=== PATIENT | female | born 1960 | race Two or more races ===

== ENCOUNTER 2021-03-09 06:59 | Inpatient (IN) | payer BC ==
[2021-03-09] MEDS ORDERED: HYDROmorphone 1 MG/ML 1 ML SYRINGE IVP STA (07:16)
[2021-03-09] MEDS ORDERED: SODIUM CHLORIDE 0.9% 1,000 ML IV STA (07:16)
--- NOTE | 2021-03-09 07:19 | ED ---
Abdominal Pain HPI - General Chief Complaint: Abdominal Pain Stated Complaint: Abdominal Pain Time Seen by Provider: 03/09/21 07:00 Source: patient, family Mode of arrival: ambulatory Limitations: no limitations - History of Present Illness Initial Comments: Patient is a 67-year-old female with past medical history of hypertension who presents to the emergency department with reported right lower quadrant abdominal pain. History is a little bit difficult to obtain as Bulgarian is a second language. The reports that they were in [facility] visiting a son when patient had sudden onset of right lower quadrant abdominal pain which started yesterday. They did go into [facility] last night. Laboratory studies were performed and a CAT scan was obtained. Laboratory studies were remarkable for a potassium of 3 and C-reactive protein of 15.7. CT of the abdomen and pelvis revealed a 1.8 cm appendix with periappendiceal soft tissue stranding and fluid. Diagnoses of evolving acute appendicitis. As the patient is normally a [place] citizen with [place] insurance they did leave [facility] AGAINST MEDICAL ADVICE and proceeded for facility as they do have insurance here. The patient was given 1 g of Rocephin and 500 mg of Flagyl prior to her discharge. She reports she also received pain medications. No vomiting. The patient has had a previous hysterectomy. The remainder of the HPI is limited due to the language barrier - Related Data Home Medications Medication Instructions Recorded Confirmed Losartan Potassium 100 mg PO DAILY 03/09/21 03/09/21 Metoprolol Tartrate [Lopressor] 50 mg PO BID 03/09/21 03/09/21 Potassium Chloride ER [K-Dur 10] 10 meq PO DAILY 03/09/21 03/09/21 hydroCHLOROthiazide [Hydrodiuril] 25 mg PO DAILY 03/09/21 03/09/21 Allergies Allergy/AdvReac Type Severity Reaction Status Date / Time No Known Allergies Allergy Verified 03/09/21 08:25 Review of Systems ROS Statement: Those systems with pertinent positive or pertinent negative responses have been documented in the HPI. ROS Other: All systems not noted in ROS Statement are negative. Past Medical History Additional Past Medical History / Comment(s): enlarged appendix History of Any Multi-Drug Resistant Organisms: None Reported Past Surgical History: Hysterectomy Past Psychological History: No Psychological Hx Reported Smoking Status: Never smoker Past Alcohol Use History: None Reported Past Drug Use History: None Reported General Exam Limitations: language barrier General appearance: alert, in no apparent distress Head exam: Present: atraumatic, normocephalic, normal inspection Eye exam: Present: normal appearance, PERRL, EOMI. Absent: scleral icterus, conjunctival injection, periorbital swelling ENT exam: Present: normal exam, mucous membranes moist Neck exam: Present: normal inspection. Absent: tenderness, meningismus, lymphadenopathy Respiratory exam: Present: normal lung sounds bilaterally. Absent: respiratory distress, wheezes, rales, rhonchi, stridor Cardiovascular Exam: Present: regular rate, normal rhythm, normal heart sounds. Absent: systolic murmur, diastolic murmur, rubs, gallop, clicks GI/Abdominal exam: Present: soft, tenderness (Right lower quadrant. Non- peritoneal abdomen), normal bowel sounds. Absent: distended, guarding, rebound, rigid Extremities exam: Present: normal inspection, full ROM, normal capillary refill. Absent: tenderness, pedal edema, joint swelling, calf tenderness Back exam: Present: normal inspection Neurological exam: Present: alert, oriented X3, CN II-XII intact Psychiatric exam: Present: normal affect, normal mood Skin exam: Present: warm, dry, intact, normal color. Absent: rash Course Vital Signs 03/09/21 03/09/21 07:01 07:40 Temperature 98.4 F 99.4 F Pulse Rate 66 77 Respiratory 22 18 Rate Blood Pressure 115/84 126/70 O2 Sat by Pulse 100 95 Oximetry Medical Decision Making - Medical Decision Making Upon arrival patient is placed into room 3. A thorough history and physical exam was performed. IV is established the patient is given a liter bolus of normal saline. She is also given 1 mg of Dilaudid for pain. Zosyn 3 mg is orde red as the patient has no ALLERGIES. I did repeat laboratory studies. They reveal a white count of 15.6. Reviewing the patient's CT I did speak with Dr. Cohen at 7:35 am. He does agree to admission. Patient will be made nothing by mouth with surgery anticipated. EKG obtained for surgery - Lab Data Result diagrams: 03/09/21 07:30 03/09/21 07:30 Lab Results 03/09/21 03/09/21 03/09/21 Range/Units 07:30 07: 07:30 WBC 15.6 H (3.8-10.6) k/uL RBC 4.70 (3.80-5.40) m/uL Hgb 14.6 (11.4-16.0) gm/dL Hct 42.4 (34.0-46.0) % MCV 90.1 (80.0-100.0) fL MCH 31.1 (25.0-35.0) pg MCHC 34.5 (31.0-37.0) g/dL RDW 12.8 (11.5-15.5) % Plt Count 182 (150-450) k/uL MPV 8.1 Neutrophils % 91 % Lymphocytes % 5 % Monocytes % 3 % Eosinophils % 1 % Basophils % 0 % Neutrophils # 14.1 H (1.3-7.7) k/uL Lymphocytes # 0.9 L (1.0-4.8) k/uL Monocytes # 0.5 (0-1.0) k/uL Eosinophils # 0.1 (0-0.7) k/uL Basophils # 0.0 (0-0.2) k/uL PT 10.8 (9.0-12.0) sec INR 1.0 (<1.2) APTT 21.9 L (22.0-30.0) sec Sodium 137 (137-145) mmol/L Potassium 3.2 L (3.5-5.1) mmol/L Chloride 102 (98-107) mmol/L Carbon Dioxide 25 (22-30) mmol/L Anion Gap 10 mmol/L BUN 12 (7-17) mg/dL Creatinine 0.59 (0.52-1.04) mg/dL Est GFR (CKD-EPI)AfAm >90 (>60 ml/min/1.73 sqM) Est GFR (CKD-EPI)NonAf >90 (>60 ml/min/1.73 sqM) Glucose 194 H (74-99) mg/dL Plasma Lactic Acid Edward (0.7-2.0) mmol/L Calcium 9.2 (8.4-10.2) mg/dL Total Bilirubin 1.0 (0.2-1.3) mg/dL AST 23 (14-36) U/L ALT 25 (4-34) U/L Alkaline Phosphatase 74 (38-126) U/L Total Protein 6.9 (6.3-8.2) g/dL Albumin 4.2 (3.5-5.0) g/dL Lipase 159 (23-300) U/L 03/09/ Range/Units 07:30 WBC (3.8-10.6) k/uL RBC (3.80-5.40) m/uL Hgb (11.4-16.0) gm/dL Hct (34.0-46.0) % MCV (80.0-100.0) fL MCH (25.0-35.0) pg MCHC (31.0-37.0) g/dL RDW (11.5-15.5) % Plt Count (150-450) k/uL MPV Neutrophils % % Lymphocytes % % Monocytes % % Eosinophils % % Basophils % % Neutrophils # (1.3-7.7) k/uL Lymphocytes # (1.0-4.8) k/uL Monocytes # (0-1.0) k/uL Eosinophils # (0-0.7) k/uL Basophils # (0-0.2) k/uL PT (9.0-12.0) sec INR (<1.2) APTT (22.0-30.0) sec Sodium (137-145) mmol/L Potassium (3.5-5.1) mmol/L Chloride (98-107) mmol/L Carbon Dioxide (22-30) mmol/L Anion Gap mmol/L BUN (7-17) mg/dL Creatinine (0.52-1.04) mg/dL Est GFR (CKD-EPI)AfAm (>60 ml/min/1.73 sqM) Est GFR (CKD-EPI)NonAf (>60 ml/min/1.73 sqM) Glucose (74-99) mg/dL Plasma Lactic Acid Edward 2.0 (0.7-2.0) mmol/L Calcium (8.4-10.2) mg/dL Total Bilirubin (0.2-1.3) mg/dL AST (14-36) U/L ALT (4-34) U/L Alkaline Phosphatase (38-126) U/L Total Protein (6.3-8.2) g/dL Albumin (3.5-5.0) g/dL Lipase (23-300) U/L - EKG Data EKG Comments: EKG demonstrates normal sinus rhythm with a ventricular rate of 75. RI interval 138. QRS 98. QTC of 431. No acute ST segment elevations or depressions concerning for ischemic changes Disposition Clinical Impression: Acute appendicitis, Abdominal pain Disposition: ADMITTED IP TO THIS HOSP Condition: Serious Is patient prescribed a controlled substance at d/c from ED?: No Referrals: None,Stated [Primary Care Provider] - 1-2 days Decision to Admit Reason: Admit from EC Decision Date: 03/09/21 Decision Time: 08:01
[2021-03-09] MEDS: PIPERACILLIN-TAZOBACTAM 3.375 GM in SODIUM CHLORIDE 0.9% 100 ML IVPB SCH ×2 (07:31→16:00)
[2021-03-09 07:49] LABS: Basophils % (A) 0 %; Eosinophils # (A) 0.1 k/uL (0-0.7); Eosinophils % (A) 1 %; HCT 42.4 % (34.0-46.0); HGB 14.6 gm/dL (11.4-16.0); Lymphocytes # (A) 0.9 k/uL (1.0-4.8); Lymphocytes % (A) 5 %; MCH 31.1 pg (25.0-35.0); MCHC 34.5 g/dL (31.0-37.0); MCV 90.1 fL (80.0-100.0); Mean Platelet Volume 8.1; Monocytes # (A) 0.5 k/uL (0-1.0); Monocytes % (A) 3 %; Neutrophils # (A) 14.1 k/uL (1.3-7.7); Neutrophils % (A) 91 %; Platelet Count 182 k/uL (150-450); RDW 12.8 % (11.5-15.5); WBC 15.6 k/uL (3.8-10.6)
[2021-03-09 07:58] LABS: ALT 25 U/L (4-34); AST 23 U/L (14-36); African American GFR (CKD) >90 (>60 ml/min/1.73 sqM); Albumin 4.2 g/dL (3.5-5.0); Alkaline Phosphatase 74 U/L (38-126); Anion Gap 10 mmol/L; Blood Urea Nitrogen 12 mg/dL (7-17); Calcium 9.2 mg/dL (8.4-10.2); Carbon Dioxide 25 mmol/L (22-30); Chloride 102 mmol/L (98-107); Glucose 194 mg/dL (74-99); Lipase 159 U/L (23-300); Non-African American GFR(CKD) >90 (>60 ml/min/1.73 sqM); Potassium 3.2 mmol/L (3.5-5.1); Sodium 137 mmol/L (137-145); Total Protein 6.9 g/dL (6.3-8.2)
[2021-03-09] MEDS ORDERED: HYDROmorphone 1 MG/ML 1 ML SYRINGE IVP PRN (08:01)
[2021-03-09] MEDS ORDERED: NALOXONE 0.4 MG/ML 1 ML VIAL IV PRN (08:01)
[2021-03-09] MEDS ORDERED: HYDROmorphone 0.5 MG/0.5 ML SYRINGE IVP PRN (08:01)
[2021-03-09 08:04] LABS: Partial Thromboplastin Time 21.9 sec (22.0-30.0); Prothrombin Time 10.8 sec (9.0-12.0)
[2021-03-09 08:25] LABS: Appearance,Urine Clear (Clear); Bilirubin,Urine Negative (Negative); Blood,Urine Negative (Negative); Color,Urine Yellow; Glucose,Urine (UA) Negative (Negative); Ketones,Urine 2+ (Negative); Leukocyte Esterase,Urine Negative (Negative); Nitrite,Urine Negative (Negative); Protein,Urine Trace (Negative); Urobilinogen,Urine <2.0 mg/dL (<2.0)
[2021-03-09 08:27] LABS: Specific Gravity,Urine >1.050 (1.001-1.035)
[2021-03-09] MEDS: SODIUM CHLORIDE 0.9% 1,000 ML IV SCH ×2 (09:51→21:34)
[2021-03-09] MEDS ORDERED: POTASSIUM CHLORIDE ER 20 MEQ TAB.ER PO STA (11:09)
--- NOTE | 2021-03-09 11:32 | P.GSHP ---
<Nickie Sheikh - Last Filed: 03/09/21 11:25> History of Present Illness H&P Date: 03/09/21 CHIEF COMPLAINT: Abdominal pain HISTORY OF PRESENT ILLNESS: This is a 61-year-old female with a known history of hypertension, prior and hysterectomy. Patient presents to the emergency room with complaints of right lower quadrant abdominal pain. Her pain started yesterday. Occitan is patient's second language. Most of history was obtained from chart. Apparently patient was in [facility] visiting her son when she had sudden right lower quadrant abdominal pain and did proceed to go to [facility] in [place]. She had laboratory results that showed a C- reactive protein of 15.7 potassium of 3 CAT scan of abdomen and pelvis had shown a 1.8 cm appendix with periappendiceal soft tissue stranding an fluid. Diagnosis of evolving acute appendicitis. Since patient is a normally [place] citizen with [place] insurance she left the hospital in [place] AGAINST MEDICAL ADVICE and proceeded for a facility that does carry her insurance. Apparently she was given a dose of Rocephin and Flagyl prior to her discharge. Patient's white count is elevated.. Denies any nausea or vomiting. Denies any fevers. PAST MEDICAL HISTORY: See list. PAST SURGICAL HISTORY: See list. MEDICATIONS: See list. ALLERGIES: See list. SOCIAL HISTORY: No illicit drug use. REVIEW OF SYSTEMS: CONSTITUTIONAL: Denies fever or chills. HEENT: Denies blurred vision, vision changes, or eye pain. Denies hemoptysis CARDIOVASCULAR: Denies chest pain or pressure. RESPIRATORY: No shortness of breath. GASTROINTESTINAL: See HPI for pertinent findings HEMATOLOGIC: Denies bleeding disorders. GENITOURINARY: Denies any blood in urine or increased urinary frequency. SKIN: Denies pruitis. Denies rash. PHYSICAL EXAM: VITAL SIGNS: Reviewed GENERAL: Well-developed in no acute distress. HEENT: No sclera icterus. Extraocular movements grossly intact. Moist buccal mucosa. Head is atraumatic, normocephalic. No nasal drainage. ABDOMEN: Soft. Nondistended. Right lower quadrant tenderness NEUROLOGIC: Alert and oriented. Cranial nerves II through XII grossly intact. LABORATORY DATA: WBC 15.6 hemoglobin 14.6 platelets 182 sodium 137 potassium 3.2 creatinine 0.59 lactic acid 2.0 LFTs normal lipase normal UA negative for infection IMAGING: Computed tomography scan findings as stated above ASSESSMENT: 1. Acute appendicitis 2. Hypokalemia PLAN: -Patient scheduled for laparoscopic appendectomy today with Dr. Cohen -Keep patient nothing by mouth -Replace potassium -Continue IV fluids -Continue IV antibiotics -Continue pain medication as needed -Continue antiemetics as needed Physician Cement Crusher Operator note has been reviewed by physician. Signing provider agrees with the documented findings, assessment, and plan of care. Past Medical History Additional Past Medical History / Comment(s): pre diagnosed with diabetes no medications History of Any Multi-Drug Resistant Organisms: None Reported Past Surgical History: Section, Hysterectomy Past Anesthesia/Blood Transfusion Reactions: No Reported Reaction Past Psychological History: No Psychological Hx Reported Smoking Status: Never smoker Past Alcohol Use History: None Reported Past Drug Use History: None Reported - Past Family History Son(s) History Unknown: Yes Medications and Allergies Home Medications Medication Instructions Recorded Confirmed Type Losartan Potassium 100 mg PO DAILY 03/09/21 03/09/21 History Metoprolol Tartrate [Lopressor] 50 mg PO BID 03/09/21 03/09/21 History Potassium Chloride ER [K-Dur 10] 10 meq PO DAILY 03/09/21 03/09/21 History hydroCHLOROthiazide [Hydrodiuril] 25 mg PO DAILY 03/09/21 03/09/21 History Allergies Allergy/AdvReac Type Severity Reaction Status Date / Time No Known Allergies Allergy Verified 03/09/21 08:25 Surgical - Exam Vital Signs Temp Pulse Resp BP Pulse Ox 98.4 F 66 22 115/84 100 03/09/21 07:01 03/09/21 07:01 03/09/21 07:01 03/09/21 07:01 03/09/21 07:01 Results - Labs 03/09/21 07:30 03/09/21 07:30 Abnormal Lab Results - Last 24 Hours (Table) 03/09/21 03/09/21 03/09/21 Range/Units 07:30 07:30 07:30 WBC 15.6 H (3.8-10.6) k/uL Neutrophils # 14.1 H (1.3-7.7) k/uL Lymphocytes # 0.9 L (1.0-4.8) k/uL APTT 21.9 L (22.0-30.0) sec Potassium (3.5-5.1) mmol/L Glucose (74-99) mg/dL Ur Specific Eros >1.050 H (1.001-1.035) Urine Protein Trace H (Negative) Urine Ketones 2+ H (Negative) 03/09/21 Range/Units 07:30 WBC (3.8-10.6) k/uL Neutrophils # (1.3-7.7) k/uL Lymphocytes # (1.0-4.8) k/uL APTT (22.0-30.0) sec Potassium 3.2 L (3.5-5.1) mmol/L Glucose 194 H (74-99) mg/dL Ur Specific Eros (1.001-1.035) Urine Protein (Negative) Urine Ketones (Negative) Diabetes panel 03/09/21 Range/Units 07:30 Sodium 137 (137-145) mmol/L Potassium 3.2 L (3.5-5.1) mmol/L Chloride 102 (98-107) mmol/L Carbon Dioxide 25 (22-30) mmol/L BUN 12 (7-17) mg/dL Creatinine 0.59 (0.52-1.04) mg/dL Glucose 194 H (74-99) mg/dL Calcium 9.2 (8.4-10.2) mg/dL AST 23 (14-36) U/L ALT 25 (4-34) U/L Alkaline Phosphatase 74 (38-126) U/L Total Protein 6.9 (6.3-8.2) g/dL Albumin 4.2 (3.5-5.0) g/dL Calcium panel 03/09/21 Range/Units 07:30 Calcium 9.2 (8.4-10.2) mg/dL Albumin 4.2 (3.5-5.0) g/dL Pituitary panel 03/09/21 Range/Units 07:30 Sodium 137 (137-145) mmol/L Potassium 3.2 L (3.5-5.1) mmol/L Chloride 102 (98-107) mmol/L Carbon Dioxide 25 (22-30) mmol/L BUN 12 (7-17) mg/dL Creatinine 0.59 (0.52-1.04) mg/dL Glucose 194 H (74-99) mg/dL Calcium 9.2 (8.4-10.2) mg/dL Adrenal panel 03/09/21 Range/Units 07:30 Sodium 137 (137-145) mmol/L Potassium 3.2 L (3.5-5.1) mmol/L Chloride 102 (98-107) mmol/L Carbon Dioxide 25 (22-30) mmol/L BUN 12 (7-17) mg/dL Creatinine 0.59 (0.52-1.04) mg/dL Glucose 194 H (74-99) mg/dL Calcium 9.2 (8.4-10.2) mg/dL Total Bilirubin 1.0 (0.2-1.3) mg/dL AST 23 (14-36) U/L ALT 25 (4-34) U/L Alkaline Phosphatase 74 (38-126) U/L Total Protein 6.9 (6.3-8.2) g/dL Albumin 4.2 (3.5-5.0) g/dL <Baldomero Cohen - Last Filed: 03/09/21 12:53> History of Present Illness As above. Spoke with the patient and her with the hospital provided cat driver. Clinical scenario discussed in detail. We do not have the CAT scan films to evaluate however patient does have right lower quadrant tenderness and CAT scan report consistent with acute appendicitis. Will proceed with laparoscopic appendectomy, possible open appendectomy. Risks of bleeding, infection, abscess, leak, possible need for laparotomy or bowel resection, conversion to an open procedure, hernia, anesthesia complications reviewed. She understands and wishes to proceed. Surgical - Exam Vital Signs Temp Pulse Resp BP Pulse Ox 98.4 F 66 22 115/84 100 03/09/21 07:01 03/09/21 07:01 03/09/21 07:01 03/09/21 07:01 03/09/21 07:01 Results - Labs 03/09/21 07:30 03/09/21 07:30 Abnormal Lab Results - Last 24 Hours (Table) 03/09/21 03/09/21 03/09/21 Range/Units 07:30 07:30 07:30 WBC 15.6 H (3.8-10.6) k/uL Neutrophils # 14.1 H (1.3-7.7) k/uL Lymphocytes # 0.9 L (1.0-4.8) k/uL APTT 21.9 L (22.0-30.0) sec Potassium (3.5-5.1) mmol/L Glucose (74-99) mg/dL Ur Specific Eros >1.050 H (1.001-1.035) Urine Protein Trace H (Negative) Urine Ketones 2+ H (Negative) 03/09/21 Range/Units 07:30 WBC (3.8-10.6) k/uL Neutrophils # (1.3-7.7) k/uL Lymphocytes # (1.0-4.8) k/uL APTT (22.0-30.0) sec Potassium 3.2 L (3.5-5.1) mmol/L Glucose 194 H (74-99) mg/dL Ur Specific Eros (1.001-1.035) Urine Protein (Negative) Urine Ketones (Negative) Diabetes panel 03/09/21 Range/Units 07:30 Sodium 137 (137-145) mmol/L Potassium 3.2 L (3.5-5.1) mmol/L Chloride 102 (98-107) mmol/L Carbon Dioxide 25 (22-30) mmol/L BUN 12 (7-17) mg/dL Creatinine 0.59 (0.52-1.04) mg/dL Glucose 194 H (74-99) mg/dL Calcium 9.2 (8.4-10.2) mg/dL AST 23 (14-36) U/L ALT 25 (4-34) U/L Alkaline Phosphatase 74 (38-126) U/L Total Protein 6.9 (6.3-8.2) g/dL Albumin 4.2 (3.5-5.0) g/dL Calcium panel 03/09/21 Range/Units 07:30 Calcium 9.2 (8.4-10.2) mg/dL Albumin 4.2 (3.5-5.0) g/dL Pituitary panel 03/09/21 Range/Units 07:30 Sodium 137 (137-145) mmol/L Potassium 3.2 L (3.5-5.1) mmol/L Chloride 102 (98-107) mmol/L Carbon Dioxide 25 (22-30) mmol/L BUN 12 (7-17) mg/dL Creatinine 0.59 (0.52-1.04) mg/dL Glucose 194 H (74-99) mg/dL Calcium 9.2 (8.4-10.2) mg/dL Adrenal panel 03/09/21 Range/Units 07:30 Sodium 137 (137-145) mmol/L Potassium 3.2 L (3.5-5.1) mmol/L Chloride 102 (98-107) mmol/L Carbon Dioxide 25 (22-30) mmol/L BUN 12 (7-17) mg/dL Creatinine 0.59 (0.52-1.04) mg/dL Glucose 194 H (74-99) mg/dL Calcium 9.2 (8.4-10.2) mg/dL Total Bilirubin 1.0 (0.2-1.3) mg/dL AST 23 (14-36) U/L ALT 25 (4-34) U/L Alkaline Phosphatase 74 (38-126) U/L Total Protein 6.9 (6.3-8.2) g/dL Albumin 4.2 (3.5-5.0) g/dL
[2021-03-09] MEDS: METOPROLOL TARTRATE 50 MG TAB PO SCH ×2 (12:12→21:18)
[2021-03-09] MEDS: ONDANSETRON 4 MG/2 ML VIAL IVP PRN (12:18)
[2021-03-09] MEDS ORDERED: HEPARIN SODIUM,PORCINE/PF 5,000 UNIT/0.5 ML SYRINGE SQ ONE (13:41)
[2021-03-09] MEDS ORDERED: IV FLUID CONTINUATION 1,000 ML IV ONE (13:50)
[2021-03-09] MEDS ORDERED: SUCCINYLCHOLINE CHLORIDE 100 MG/5 ML SYR IV ONE (16:50)
[2021-03-09] MEDS ORDERED: NEOSTIGMINE 1 MG/ML 10 ML VIAL ONE (16:50)
[2021-03-09] MEDS ORDERED: MIDAZOLAM 2 MG/2 ML VIAL ONE (16:50)
[2021-03-09] MEDS ORDERED: fentaNYL (PF) 50 MCG/ML 2 ML AMP ONE (16:50)
[2021-03-09] MEDS ORDERED: PROPOFOL 10 MG/ML 20 ML VIAL IV ONE (16:50)
[2021-03-09] MEDS ORDERED: PHENYLEPHRINE-0.9% NACL SYG 1,000 MCG/10 ML SYRINGE ONE (16:50)
[2021-03-09] MEDS ORDERED: HYDROmorphone (PF) 1 MG/ML ONE (16:50)
[2021-03-09] MEDS ORDERED: ePHEDrine SULFATE/0.9% NACL/PF 50 MG/5 ML SYRINGE IV ONE (16:50)
[2021-03-09] MEDS ORDERED: GLYCOPYRROLATE 0.2 MG/ML 2 ML VIAL ONE (16:50)
[2021-03-09] MEDS ORDERED: ROCURONIUM 10 MG/ML (5 ML VIAL) IV ONE (16:50)
[2021-03-09] MEDS ORDERED: BUPIVACAINE (PF) 0.25% 30 ML VIAL SQ ONE ×2 (17:21)
[2021-03-09] MEDS ORDERED: LACTATED RINGERS 1,000 ML IV ONE (17:44)
[2021-03-09] MEDS ORDERED: traMADol 50 MG TAB PO PRN (17:46)
--- NOTE | 2021-03-09 17:49 | P.OP ---
Date of Procedure: 03/09/21 Procedure(s) Performed: PREOPERATIVE DIAGNOSIS: Acute appendicitis POSTOPERATIVE DIAGNOSIS: Same with abscess and localized peritonitis PROCEDURE: Laparoscopic appendectomy SURGEON: Vicki EBL: 5 mL ANESTHESIA: General COMPLICATIONS: None OPERATIVE PROCEDURE: The patient was brought and placed on the operating table in the supine position. The patient was placed under general anesthesia. The abdomen was prepped and draped in the usual sterile fashion. A small vertical infraumbilical incision was made. The fascia was retracted anteriorly with Melia forceps. The Veress needle was advanced into the peritoneal cavity. The saline drop test was normal. Insufflation took place to 15 mmHg. A 5 mm trocar was then placed. An additional 5 mm suprapubic trocar was placed under direct visualization as well as a 12 mm left lower quadrant trocar under direct visualization. The appendix was inspected. It was acutely inflamed. The patient had an abscess present in the right lower quadrant that was irrigated fully. There was no obvious perforation of the gallbladder seen. There were some gangrenous changes however noted. There was some peritonitis in that area identified. The mesoappendix was dissected. The base of the appendix was divided using a linear 45 mm intestinal stapler. The mesentery itself was divided using the LigaSure device and 12 mm clips. The area was then irrigated. No further purulence or bleeding was seen. The appendix was brought out of the peritoneal cavity through the left lower quadrant trocar site with an Endo Catch bag. The fascia at the 12 mm site was closed using a [id number] Tae- Eli 0 Vicryl stitch. The skin at all 3 sites was closed using 4-0 Monocryl sutures. Skin glue was then applied. DISPOSITION: Stable to recovery room
[2021-03-09] MEDS: KETOROLAC 15 MG/ML 1 ML VIAL IVP SCH (18:51)
[2021-03-09] MEDS ORDERED: METOPROLOL TARTRATE 25 MG TAB PO STA (21:15)
[2021-03-09] MEDS: DOCUSATE 100 MG CAP PO SCH (21:34)
[2021-03-10] MEDS: PIPERACILLIN-TAZOBACTAM 3.375 GM in SODIUM CHLORIDE 0.9% 100 ML IVPB SCH ×4 (00:20→23:58)
[2021-03-10] MEDS: HEPARIN SODIUM,PORCINE/PF 5,000 UNIT/0.5 ML SYRINGE SQ SCH ×4 (00:28→23:58)
[2021-03-10] MEDS: KETOROLAC 15 MG/ML 1 ML VIAL IVP SCH ×5 (00:28→23:57)
[2021-03-10] MEDS: DOCUSATE 100 MG CAP PO SCH ×2 (07:52→20:43)
[2021-03-10] MEDS: PANTOPRAZOLE 40 MG/10 ML VIAL IV SCH (07:54)
[2021-03-10] MEDS: METOPROLOL TARTRATE 50 MG TAB PO SCH ×2 (09:08→20:43)
--- NOTE | 2021-03-10 10:09 | P.PN ---
Subjective Progress Note Date: 03/10/21 Principal diagnosis: Acute appendicitis Patient feels better today. Her pain is improved. Mild nausea. No vomiting. No fevers. Objective - Vital Signs Vital signs: Vital Signs Temp 98.5 F 03/10/21 06:53 Pulse 74 03/10/21 06:53 Resp 16 03/10/21 06:53 BP 102/62 03/10/21 06:53 Pulse Ox 95 03/10/21 06:53 Intake & Output 03/09/21 03/10/21 03/10/21 18:59 06:59 18:59 Intake Total 1100 100 Output Total 210 625 200 Balance 890 -525 -200 Weight 84.2 kg Intake: IV 1100 Oral 100 Output: Urine 200 625 200 Estimated Blood Loss 10 Other: Voiding Method Toilet # Voids 1 1 - Exam Abdomen: Soft, nondistended, mild lower abdominal tenderness, incisions clean and dry - Labs CBC & Chem 7: 03/09/21 07:30 03/09/21 07:30 Assessment and Plan (1) Acute appendicitis Narrative/Plan: Patient doing fairly well postoperatively. Continue advancing diet as tolerated. Ambulate. Recheck labs tomorrow. Current Visit: Yes Status: Acute Code(s): K35.80 - UNSPECIFIED ACUTE APPENDICITIS SNOMED Code(s): 33505405
[2021-03-10] MEDS: SODIUM CHLORIDE 0.9% 1,000 ML IV SCH ×2 (11:57→23:58)
[2021-03-10] MEDS: HYDROcodone/APAP 5-325MG 1 EACH TAB PO PRN (12:49)
--- NOTE | 2021-03-10 22:56 | P.CONS ---
History of Present Illness - Reason for Consult Consult date: 03/10/21 Medical management - Chief Complaint Abdominal pain - History of Present Illness Patient is a 61-year-old female with a known history of hypertension, history of and hysterectomy presents to ER with complaints of right lower quadrant abdominal pain. Filipino is a second language for the patient and most of the history was obtained from her at bedside. According to him they were at [facility] visiting his son when she suddenly developed right lower quadrant abdominal pain started in the evening on 03/08/2021. They went to [facility] in [facility] where she had CT of the abdomen pelvis which showed 1.8 cm appendix with periappendiceal soft tissue stranding and fluid. Diagnosis of evolving acute appendicitis. Laboratory showed potassium level of 3.0 and CRP 15.7. Patient left AMA from the hospital as they do not have health insurance in [place]. Patient was given a dose of ceftriaxone and Flagyl prior to discharge. Otherwise patient denied any complaints of nausea or vomiting. No fever no chills. No headache or dizziness or lightheadedness. No diarrhea. No chest pain or shortness of breath. Laboratory showed WBC 15.6 hemoglobin 14.6 and platelets 182 Sodium 137 potassium 3.2 chloride 102 BUN 12 and creatinine 0.59 Liver enzymes are not elevated UA negative for infection Review of Systems Constitutional: Patient denies any fever or chills . No generalized weakness or weight loss. Abdomen: Right lower quadrant abdominal pain associate with nausea. No episodes of vomiting. No diarrhea.. Cardiovascular: Patient denies any chest pain or short of breath no palpitations. Respiratory: patient denied any cough or sputum production. No shortness of breath Neurologic: Patient denied any numbness or tingling headache. Musculoskeletal: Patient denies any complaints of joint swelling or deformity. Skin: Negative Psychiatric: Negative Endocrine: No heat or cold intolerance. No recent weight gain. Genitourinary: No dysuria or hematuria. All other 14 point ROS negative except the above Past Medical History Additional Past Medical History / Comment(s): pre diagnosed with diabetes no medications History of Any Multi-Drug Resistant Organisms: None Reported Past Surgical History: Section, Hysterectomy Past Anesthesia/Blood Transfusion Reactions: No Reported Reaction Past Psychological History: No Psychological Hx Reported Smoking Status: Never smoker Past Alcohol Use History: None Reported Past Drug Use History: None Reported - Past Family History Son(s) History Unknown: Yes Medications and Allergies Home Medications Medication Instructions Recorded Confirmed Type Losartan Potassium 100 mg PO DAILY 03/09/21 03/09/21 History Metoprolol Tartrate [Lopressor] 50 mg PO BID 03/09/21 03/09/21 History Potassium Chloride ER [K-Dur 10] 10 meq PO DAILY 03/09/21 03/09/21 History hydroCHLOROthiazide [Hydrodiuril] 25 mg PO DAILY 03/09/21 03/09/21 History Allergies Allergy/AdvReac Type Severity Reaction Status Date / Time No Known Allergies Allergy Verified 03/09/21 08:25 Physical Exam Vitals: Vital Signs Temp Pulse Resp BP BP Pulse Ox 03/10/21 06:53 98.5 F 74 16 102/62 95 03/10/21 02:00 98.4 F 75 16 100/62 95 03/10/21 01:18 67 96 03/10/21 00:59 64 96 03/10/21 00:46 75 16 96 03/09/21 22:20 73 16 104/66 98 03/09/21 21:30 75 16 116/73 99 03/09/21 21:20 94 L 03/09/21 21:09 70 16 117/76 03/09/21 21:07 97 03/09/21 20:34 98.0 F 71 16 124/77 99 03/09/21 20:20 74 16 113/71 94 L 03/09/21 20:06 73 16 102/67 95 03/09/21 19:50 74 16 106/68 96 03/09/21 19:44 16 03/09/21 19:35 63 16 112/71 98 03/09/21 19:20 75 16 114/74 97 03/09/21 19:05 73 16 98 03/09/21 18:50 61 16 109/70 98 03/09/21 18:35 99.3 F 64 16 112/69 96 03/09/21 18:16 82 16 119/61 98 03/09/21 18:01 76 16 119/62 100 03/09/21 17:46 99.5 F 87 16 120/64 100 03/09/21 13:37 96.6 F L 79 12 112/62 91 L Intake and Output 07/30/21 07/31/21 07/31/21 22:59 06:59 14:59 Intake Total 1100 Output Total 235 400 200 Balance 865 -400 -200 Intake: IV 1000 Oral 100 Output: Urine 225 400 200 Estimated Blood Loss 10 Other: Voiding Method Toilet # Voids 1 1 PHYSICAL EXAMINATION: Patient is lying in the bed comfortably, no acute distress, awake alert and oriented.. HEENT: Normocephalic. Neck is supple. Pupils reactive. Nostrils clear. Oral cavity is moist. Neck reveals no JVD, carotid bruits, or thyromegaly. CHEST EXAMINATION: Trachea is central. Symmetrical expansion. Lung ruby clear to auscultation and percussion. CARDIAC: Normal S1, S2 with no gallops. No murmurs ABDOMEN: Soft. mild tenderness. Bowel sounds normal. No organomegaly. No abdominal bruits. Extremities: reveal no edema. No clubbing or cyanosis Neurologically awake, alert, oriented x3 with well-coordinated movements. No focal deficits noted Skin: No rash or skin lesions. Psychiatric: Coperative. Nonsuicidal Musculoskeletal: No joint swelling or deformity. Normal range of motion. Results CBC & Chem 7: 03/09/21 07:30 03/09/21 07:30 Assessment and Plan Assessment: Acute appendicitis with abscess and localized peritonitis. Status post laparoscopic appendectomy postoperative day 1. Leukocytosis secondary to above. Hypertension Hypokalemia DVT prophylaxis with heparin subcu Plan: Patient will be continued on antibiotics in the form of Zosyn and IV hydration. Encourage ambulation and incentive spirometry. Patient is status post laparoscopic appendectomy. Was started on clear liquid diet. Replace electrolytes. Continue with GI and DVT prophylaxis. We will continue to follow closely and further recommendations based on clinical course. Discussed with the patient and her at bedside in detail. Time with Patient: Greater than 30
[2021-03-11] MEDS: KETOROLAC 15 MG/ML 1 ML VIAL IVP SCH ×2 (06:01→12:20)
[2021-03-11 06:14] LABS: Basophils % (A) 0 %; Eosinophils # (A) 0.1 k/uL (0-0.7); Eosinophils % (A) 2 %; HCT 38.3 % (34.0-46.0); HGB 12.8 gm/dL (11.4-16.0); Lymphocytes # (A) 1.7 k/uL (1.0-4.8); Lymphocytes % (A) 31 %; MCH 31.3 pg (25.0-35.0); MCHC 33.3 g/dL (31.0-37.0); MCV 94.1 fL (80.0-100.0); Mean Platelet Volume 7.9; Monocytes # (A) 0.3 k/uL (0-1.0); Monocytes % (A) 5 %; Neutrophils # (A) 3.4 k/uL (1.3-7.7); Neutrophils % (A) 61 %; Platelet Count 169 k/uL (150-450); RBC 4.07 m/uL (3.80-5.40); RDW 13.2 % (11.5-15.5); WBC 5.6 k/uL (3.8-10.6)
[2021-03-11 06:24] LABS: African American GFR (CKD) >90 (>60 ml/min/1.73 sqM); Anion Gap 4 mmol/L; Blood Urea Nitrogen 6 mg/dL (7-17); Calcium 8.1 mg/dL (8.4-10.2); Carbon Dioxide 23 mmol/L (22-30); Chloride 115 mmol/L (98-107); Glucose 105 mg/dL (74-99); Non-African American GFR(CKD) >90 (>60 ml/min/1.73 sqM); Potassium 3.4 mmol/L (3.5-5.1); Sodium 142 mmol/L (137-145)
[2021-03-11] MEDS: PIPERACILLIN-TAZOBACTAM 3.375 GM in SODIUM CHLORIDE 0.9% 100 ML IVPB SCH ×3 (07:50→23:26)
[2021-03-11] MEDS: HEPARIN SODIUM,PORCINE/PF 5,000 UNIT/0.5 ML SYRINGE SQ SCH ×3 (07:50→23:27)
[2021-03-11] MEDS: HYDROcodone/APAP 5-325MG 1 EACH TAB PO PRN (07:55)
[2021-03-11] MEDS: PANTOPRAZOLE 40 MG/10 ML VIAL IV SCH (08:01)
[2021-03-11] MEDS: DOCUSATE 100 MG CAP PO SCH ×2 (08:02→23:05)
[2021-03-11] MEDS: METOPROLOL TARTRATE 50 MG TAB PO SCH ×2 (08:03→20:23)
--- NOTE | 2021-03-11 11:06 | P.PN ---
Subjective Progress Note Date: 03/11/21 Principal diagnosis: Acute appendicitis Patient more nauseated today. She has not had a bowel movement yet. Tolerating liquid diet. Mild discomfort from the bloating. Objective - Vital Signs Vital signs: Vital Signs Temp 97.6 F 03/11/21 08:00 Pulse 80 03/11/21 08:00 Resp 18 03/11/21 08:00 BP 142/83 03/11/21 08:00 Pulse Ox 96 03/11/21 08:00 Intake & Output 03/10/21 03/11/21 03/11/21 18:59 06:59 18:59 Intake Total 240 Output Total 1300 Balance -1060 Intake: Oral 240 Output: Urine 1300 Other: # Voids 3 1 - Exam Abdomen: Soft, mild distention, mild incisional tenderness - Labs CBC & Chem 7: 03/11/21 06:00 03/11/21 06:00 Labs: Abnormal Lab Results - Last 24 Hours (Table) 03/11/21 Range/Units 06:00 Potassium 3.4 L (3.5-5.1) mmol/L Chloride 115 H (98-107) mmol/L BUN 6 L (7-17) mg/dL Glucose 105 H (74-99) mg/dL Calcium 8.1 L (8.4-10.2) mg/dL Assessment and Plan (1) Acute appendicitis Narrative/Plan: Patient overall doing fairly well. Continue full liquids. Ambulate. Hopefully discharge tomorrow. Continue antibiotics. Current Visit: Yes Status: Acute Code(s): K35.80 - UNSPECIFIED ACUTE APPENDICITIS SNOMED Code(s): 91321106
[2021-03-11] MEDS: ONDANSETRON 4 MG/2 ML VIAL IVP PRN (12:18)
[2021-03-11] MEDS: SODIUM CHLORIDE 0.9% 1,000 ML IV SCH (12:29)
--- NOTE | 2021-03-11 22:11 | P.PN ---
Subjective Progress Note Date: 03/11/21 Principal diagnosis: Acute appendicitis with abscess and localized peritonitis. Status post laparoscopic appendectomy Patient is a 61-year-old female with a known history of hypertension, history of and hysterectomy presents to ER with complaints of right lower quadra nt abdominal pain. Urdu is a second language for the patient and most of the history was obtained from her at bedside. According to him they were at [facility] visiting his son when she suddenly developed right lower quadrant abdominal pain started in the evening on 03/08/2021. They went to [facility] in [facility] where she had CT of the abdomen pelvis which showed 1 .8 cm appendix with periappendiceal soft tissue stranding and fluid. Diagnosis of evolving acute appendicitis. Laboratory showed potassium level of 3.0 and CRP 15.7. Patient left AMA from the hospital as they do not have health insurance in [place]. Patient was given a dose of ceftriaxone and Flagyl prior to discharge. Otherwise patient denied any complaints of nausea or vomiting. No fever no chills. No headache or dizziness or lightheadedness. No diarrhea. No chest pain or shortness of breath. Laboratory showed WBC 15.6 hemoglobin 14.6 and platelets 182 Sodium 137 potassium 3.2 chloride 102 BUN 12 and creatinine 0.59 Liver enzymes are not elevated UA negative for infection. 03/11/2021 Patient is currently resting in the bed. Awake alert and oriented. Complains of abdominal bloating and nausea. No episodes of vomiting. Tolerating clear liquids. Advance to full liquid diet. Patient is able to ambulate. No complaints of chest pain or shortness of breath. No headache or dizziness or lightheadedness. Laboratory showed leukocytosis improved. Potassium level is 3.4 which is being replaced. Current medications reviewed. Objective - Vital Signs Vital signs: Vital Signs Temp 98.5 F 03/11/21 20:00 Pulse 63 03/11/21 20:00 Resp 16 03/11/21 20:00 BP 142/79 03/11/21 20:00 Pulse Ox 98 03/11/21 20:00 Intake & Output 03/11/21 03/11/21 03/12/21 06:59 18:59 06:59 Intake Total 100 Balance 100 Intake: Oral 100 Other: # Voids 3 1 # Bowel Movements 1 - Exam PHYSICAL EXAMINATION: Patient is lying in the bed comfortably, no acute distress, awake alert and oriented.. HEENT: Normocephalic. Neck is supple. Pupils reactive. Nostrils clear. Oral cavity is moist. Neck reveals no JVD, carotid bruits, or thyromegaly. CHEST EXAMINATION: Trachea is central. Symmetrical expansion. Lung ruby clear to auscultation and percussion. CARDIAC: Normal S1, S2 with no gallops. No murmurs ABDOMEN: Soft. mild RLQ tenderness. Bowel sounds sluggish. No organomegaly. No abdominal bruits. Extremities: reveal no edema. No clubbing or cyanosis Neurologically awake, alert, oriented x3 with well-coordinated movements. No focal deficits noted Skin: No rash or skin lesions. Psychiatric: Coperative. Nonsuicidal Musculoskeletal: No joint swelling or deformity. Normal range of motion. - Labs CBC & Chem 7: 03/11/21 06:00 03/11/21 06:00 Labs: Abnormal Lab Results - Last 24 Hours (Table) 03/11/21 Range/Units 06:00 Potassium 3.4 L (3.5-5.1) mmol/L Chloride 115 H (98-107) mmol/L BUN 6 L (7-17) mg/dL Glucose 105 H (74-99) mg/dL Calcium 8.1 L (8.4-10.2) mg/dL Assessment and Plan Assessment: Acute appendicitis with abscess and localized peritonitis. Status post laparos copic appendectomy postoperative day 2. Leukocytosis secondary to above. Hypertension Hypokalemia DVT prophylaxis with heparin subcu Plan: Patient will be continued on antibiotics in the form of Zosyn and IV hydration. Encourage ambulation and incentive spirometry. Patient is status post laparosc opic appendectomy. Was started on clear liquid diet. advanced to full liquids. Replace electrolytes. Continue with GI and DVT prophylaxis. We will continue to follow closely and further recommendations based on clinical course. Discussed with the patient at bedside in detail.
[2021-03-12] MEDS: SODIUM CHLORIDE 0.9% 1,000 ML IV SCH ×2 (06:10→16:00)
[2021-03-12 07:04] LABS: African American GFR (CKD) >90 (>60 ml/min/1.73 sqM); Anion Gap 4 mmol/L; Blood Urea Nitrogen 3 mg/dL (7-17); Calcium 8.4 mg/dL (8.4-10.2); Carbon Dioxide 24 mmol/L (22-30); Chloride 112 mmol/L (98-107); Glucose 106 mg/dL (74-99); Non-African American GFR(CKD) >90 (>60 ml/min/1.73 sqM); Potassium 3.2 mmol/L (3.5-5.1); Sodium 140 mmol/L (137-145)
[2021-03-12] MEDS: HEPARIN SODIUM,PORCINE/PF 5,000 UNIT/0.5 ML SYRINGE SQ SCH ×3 (08:48→23:56)
[2021-03-12] MEDS: PIPERACILLIN-TAZOBACTAM 3.375 GM in SODIUM CHLORIDE 0.9% 100 ML IVPB SCH ×3 (08:48→23:56)
[2021-03-12] MEDS: METOPROLOL TARTRATE 50 MG TAB PO SCH ×2 (08:48→21:10)
[2021-03-12] MEDS: PANTOPRAZOLE 40 MG/10 ML VIAL IV SCH (08:48)
[2021-03-12] MEDS: DOCUSATE 100 MG CAP PO SCH ×2 (08:56→21:59)
[2021-03-12] MEDS: POTASSIUM CHLORIDE ER 20 MEQ TAB.ER PO SCH ×2 (10:42→11:06)
--- NOTE | 2021-03-12 14:17 | P.PN ---
Subjective Progress Note Date: 03/12/21 Acute appendicitis with abscess and localized peritonitis. Status post laparoscopic appendectomy Patient is a 61-year-old female with a known history of hypertension, history of and hysterectomy presents to ER with complaints of right lower quadrant abdominal pain. Lithuanian is a second language for the patient and most of the history was obtained from her at bedside. According to him they were at [facility] visiting his son when she suddenly developed right lower quadrant abdominal pain started in the evening on 03/08/2021. They went to [facility] in [facility] where she had CT of the abdomen pelvis which showed 1.8 cm appendix with periappendiceal soft tissue stranding and fluid. Diagnosis of evolving acute appendicitis. Laboratory showed potassium level of 3.0 and CRP 15.7. Patient left AMA from the hospital as they do not have health insurance in [place]. Patient was given a dose of ceftriaxone and Flagyl prior to discharge. Otherwise patient denied any complaints of nausea or vomiting. No fever no chills. No headache or dizziness or lightheadedness. No diarrhea. No chest pain or shortness of breath. Laboratory showed WBC 15.6 hemoglobin 14.6 and platelets 182 Sodium 137 potassium 3.2 chloride 102 BUN 12 and creatinine 0.59 Liver enzymes are not elevated UA negative for infection. 03/11/2021 Patient is currently resting in the bed. Awake alert and oriented. Complains of abdominal bloating and nausea. No episodes of vomiting. Tolerating clear liquids. Advance to full liquid diet. Patient is able to ambulate. No complaints of chest pain or shortness of breath. No headache or dizziness or lightheadedness. Laboratory showed leukocytosis improved. Potassium level is 3.4 which is being replaced. 03/12/2021 Patient is evaluated today resting with at bedside. Patient is awake alert and oriented. Patient is denying pain around incisional site. Patient has denied nausea vomiting. Patient is tolerating advanced diet full liquid. Patient has been up ambulating to the restroom. Patient denies shortness of breath. Patient does complain of a mild burning sensation underneath her left breast that is reproducible with movement. Patient states that this pain was improved with pain medication and a warm heat pack applied. Potassium today is 3.2 which was replaced per protocol, will repeat CBC in the morning. Patient's leukocytosis is improved today down to 5.6, most likely reactive in nature. Patient remains afebrile. Patient is being empirically treated with Zosyn in the form of IV antibiotics. Patient is receiving [place] and tramadol for pain management with Dilaudid IV for breakthrough pain. Patient denies bowel movement however states that she is passing gas. ROS: Constitutional: Denied any fatigue denied any fever. Cardio vascular: denied any chest pain, palpitations Gastrointestinal denied any nausea vomiting Pulmonary: Denied any shortness of breath cough Neurologic denied any new focal deficits Musculoskeletal: Reports burning under left breast All inpatient medications were reviewed and appropriate changes in these medications as dictated in the interval history and assessment and plan. PHYSICAL EXAMINATION: GENERAL: The patient is alert and oriented x3, not in any acute distress. Well developed, well nourished. HEENT: Pupils are round and equally reacting to light. EOMI. No scleral icterus. No conjunctival pallor. Normocephalic, atraumatic. No pharyngeal erythema. No thyromegaly. CARDIOVASCULAR: S1 and S2 present. No murmurs, rubs, or gallops. PULMONARY: Chest is clear to auscultation, no wheezing or crackles. ABDOMEN: Soft, mild RLQ tenderness, nondistended, hypoactive bowel sounds. No palpable organomegaly. MUSCULOSKELETAL: No joint swelling or deformity. EXTREMITIES: No cyanosis, clubbing, or pedal edema. NEUROLOGICAL: Gross neurological examination did not reveal any focal deficits. SKIN: No rashes. Asessment: Acute appendicitis with abscess and localized peritonitis. Status post laparoscopic appendectomy postoperative day 3. Leukocytosis secondary to above, improved WBC 5.6 today Hypertension, losartan and hydrodiuril on hold Hypokalemia - 3.2 today, repllaced via potassium replacement protocol, check electrolytes tomorrow. DVT prophylaxis with heparin subcu Plan: Patient will be continued on antibiotics in the form of Zosyn and IV hydration. Encourage ambulation and incentive spirometry. Patient is status post laparoscopic appendectomy. Was started on clear liquid diet and advanced to full liquid, tolerating diet well. Replace electrolytes. Continue with GI and DVT prophylaxis. We will continue to follow closely and further recommendations based on clinical course. Discussed with the patient at bedside in detail. Objective - Vital Signs Vital signs: Vital Signs Temp 97.8 F 03/12/21 08:56 Pulse 68 03/12/21 08:56 Resp 18 03/12/21 08:56 BP 151/85 03/12/21 08:56 Pulse Ox 95 03/12/21 08:56 Intake & Output 03/11/21 03/12/21 03/12/21 18:59 06:59 18:59 Intake Total 100 Balance 100 Intake: Oral 100 Other: # Voids 1 1 # Bowel Movements 1 - Cardiovascular Rhythm: regular Heart sounds: normal: S1, S2 - Gastrointestinal Localized gastrointestinal: tender: RLQ (incisional pain ) - Musculoskeletal Musculoskeletal: Present: strength equal bilaterally - Labs CBC & Chem 7: 03/11/21 06:00 03/12/21 06:27 Labs: Abnormal Lab Results - Last 24 Hours (Table) 03/12/21 Range/Units 06:27 Potassium 3.2 L (3.5-5.1) mmol/L Chloride 112 H (98-107) mmol/L BUN 3 L (7-17) mg/dL Creatinine 0.51 L (0.52-1.04) mg/dL Glucose 106 H (74-99) mg/dL Assessment and Plan Time with Patient: Greater than 30
--- NOTE | 2021-03-12 15:13 | P.PN ---
Subjective Progress Note Date: 03/12/21 Principal diagnosis: Acute appendicitis Patient doing well today. She is complaining of some left breast pain. It is tender to the touch. Increases with standing or walking. Belly pain is improved. Tolerated diet. No shortness of breath. No chest pain. Objective - Vital Signs Vital signs: Vital Signs Temp 97.6 F 03/12/21 14:10 Pulse 66 03/12/21 14:10 Resp 18 03/12/21 14:10 BP 165/91 03/12/21 14:10 Pulse Ox 97 03/12/21 14:10 Intake & Output 03/11/21 03/12/21 03/12/21 18:59 06:59 18:59 Intake Total 100 Balance 100 Intake: Oral 100 Other: # Voids 1 1 # Bowel Movements 1 - Exam Abdomen: Soft, nondistended, nontender, incisions clean and dry - Labs CBC & Chem 7: 03/11/21 06:00 03/12/21 06:27 Labs: Abnormal Lab Results - Last 24 Hours (Table) 03/12/21 Range/Units 06:27 Potassium 3.2 L (3.5-5.1) mmol/L Chloride 112 H (98-107) mmol/L BUN 3 L (7-17) mg/dL Creatinine 0.51 L (0.52-1.04) mg/dL Glucose 106 H (74-99) mg/dL Assessment and Plan (1) Acute appendicitis Narrative/Plan: Patient doing well today. Continue diet as tolerated. Continue IV antibiotics. Check Covid PCR in anticipation for travel back to [place]. Plan discharge [facility]. Monitor complaints of left breast pain. Current Visit: Yes Status: Acute Code(s): K35.80 - UNSPECIFIED ACUTE APPEN DICITIS SNOMED Code(s): 29251260
[2021-03-12] MEDS: hydroCHLOROthiazide 25 MG TAB PO SCH (15:38)
[2021-03-12] MEDS: LOSARTAN 50 MG TAB PO SCH (15:38)
[2021-03-13] MEDS: HEPARIN SODIUM,PORCINE/PF 5,000 UNIT/0.5 ML SYRINGE SQ SCH (07:53)
[2021-03-13] MEDS: PIPERACILLIN-TAZOBACTAM 3.375 GM in SODIUM CHLORIDE 0.9% 100 ML IVPB SCH (07:54)
[2021-03-13] MEDS: DOCUSATE 100 MG CAP PO SCH (09:37)
[2021-03-13] MEDS: LOSARTAN 50 MG TAB PO SCH (09:37)
[2021-03-13] MEDS: hydroCHLOROthiazide 25 MG TAB PO SCH (09:40)
[2021-03-13] MEDS: METOPROLOL TARTRATE 50 MG TAB PO SCH (09:41)
[2021-03-13] MEDS: PANTOPRAZOLE 40 MG/10 ML VIAL IV SCH (09:41)
[2021-03-13 10:16] LABS: African American GFR (CKD) >90 (>60 ml/min/1.73 sqM); Anion Gap 8 mmol/L; Blood Urea Nitrogen 4 mg/dL (7-17); Calcium 9.2 mg/dL (8.4-10.2); Carbon Dioxide 22 mmol/L (22-30); Chloride 108 mmol/L (98-107); Glucose 165 mg/dL (74-99); Magnesium 1.7 mg/dL (1.6-2.3); Non-African American GFR(CKD) >90 (>60 ml/min/1.73 sqM); Potassium 3.5 mmol/L (3.5-5.1); Sodium 138 mmol/L (137-145)
[2021-03-13] MEDS ORDERED: POTASSIUM CHLORIDE ER 20 MEQ TAB.ER PO STA (10:48)
[2021-03-13] MEDS ORDERED: MAGNESIUM SULFATE-D5W PMX 1 GM in DEXTROSE/WATER 1 100ML.BAG IVPB ONE (11:00)
[2021-03-13 12:26] VITALS: BP 166/85; PULSE 60; RESP 17; TEMP 98
[2021-03-13] MEDS: SODIUM CHLORIDE 0.9% 1,000 ML IV SCH (13:10)
--- NOTE | 2021-03-13 13:23 | P.PN ---
Subjective Progress Note Date: 03/13/21 Acute appendicitis with abscess and localized peritonitis. Status post laparoscopic appendectomy Patient is a 61-year-old female with a known history of hypertension, history of and hysterectomy presents to ER with complaints of right lower quadrant abdominal pain. Lithuanian is a second language for the patient and most of the history was obtained from her at bedside. According to him they were at [facility] visiting his son when she suddenly developed right lower quadrant abdominal pain started in the evening on 03/08/2021. They went to [facility] in [facility] where she had CT of the abdomen pelvis which showed 1.8 cm appendix with periappendiceal soft tissue stranding and fluid. Diagnosis of evolving acute appendicitis. Laboratory showed potassium level of 3.0 and CRP 15.7. Patient left AMA from the hospital as they do not have health insurance in [place]. Patient was given a dose of ceftriaxone and Flagyl prior to discharge. Otherwise patient denied any complaints of nausea or vomiting. No fever no chills. No headache or dizziness or lightheadedness. No diarrhea. No chest pain or shortness of breath. Laboratory showed WBC 15.6 hemoglobin 14.6 and platelets 182 Sodium 137 potassium 3.2 chloride 102 BUN 12 and creatinine 0.59 Liver enzymes are not elevated UA negative for infection. 03/11/2021 Patient is currently resting in the bed. Awake alert and oriented. Complains of abdominal bloating and nausea. No episodes of vomiting. Tolerating clear liquids. Advance to full liquid diet. Patient is able to ambulate. No complaints of chest pain or shortness of breath. No headache or dizziness or lightheadedness. Laboratory showed leukocytosis improved. Potassium level is 3.4 which is being replaced. 03/12/2021 Patient is evaluated today resting with at bedside. Patient is awake alert and oriented. Patient is denying pain around incisional site. Patient has denied nausea vomiting. Patient is tolerating advanced diet full liquid. Patient has been up ambulating to the restroom. Patient denies shortness of breath. Patient does complain of a mild burning sensation underneath her left breast that is reproducible with movement. Patient states that this pain was improved with pain medication and a warm heat pack applied. Potassium today is 3.2 which was replaced per protocol, will repeat CBC in the morning. Patient's leukocytosis is improved today down to 5.6, most likely reactive in nature. Patient remains afebrile. Patient is being empirically treated with Zosyn in the form of IV antibiotics. Patient is receiving [place] and tramadol for pain management with Dilaudid IV for breakthrough pain. Patient denies bowel movement however states that she is passing gas. 03/13/2021 Patient is currently resting in bed, denies abdominal pain. She reports the left breast pain has improved with intermittent heat as well as support with a bra and abdominal binder. Patient denies chest pain, SOB. Reports passing gas, +BM, and no difficulties with urination. Pts vital signs are stable this morning, BP 165/86, pending recheck this morning after receiving her AM meds. Pt remains afebrile. COVID pending for discharge in regards to travel plans post discharge. Potassium is improved this morning at 3.5, magnesium of 1.7. Plan is for discharge today from [facility]. ROS: Constitutional: Denied any fatigue denied any fever. Cardio vascular: denied any chest pain, palpitations Gastrointestinal denied any nausea vomiting Pulmonary: Denied any shortness of breath cough Neurologic denied any new focal deficits All inpatient medications were reviewed and appropriate changes in these medic ations as dictated in the interval history and assessment and plan. PHYSICAL EXAMINATION: GENERAL: The patient is alert and oriented x3, not in any acute distress. Well developed, well nourished. HEENT: Pupils are round and equally reacting to light. EOMI. No scleral icterus. No conjunctival pallor. Normocephalic, atraumatic. No pharyngeal erythema. No thyromegaly. CARDIOVASCULAR: S1 and S2 present. No murmurs, rubs, or gallops. PULMONARY: Chest is clear to auscultation, no wheezing or crackles. ABDOMEN: Soft, nontender, nondistended, normoactive bowel sounds. No palpable organomegaly. MUSCULOSKELETAL: No joint swelling or deformity. EXTREMITIES: No cyanosis, clubbing, or pedal edema. NEUROLOGICAL: Gross neurological examination did not reveal any focal deficits. SKIN: No rashes. Asessment: Acute appendicitis with abscess and localized peritonitis. Status post laparoscopic appendectomy postoperative day 4. Leukocytosis secondary to above, improved Hypertension, losartan and hydrodiuril resumed - BP recheck pending Hypokalemia - 3.5 today, improved after supplementation DVT prophylaxis with heparin subcu Plan: Patient will be continued on antibiotics in the form of IV Zosyn and IV hydration. Encourage ambulation and incentive spirometry. Patient is status post laparoscopic appendectomy. Pts diet has been advanced and is tolerating well. Electrolytes have been replaced. Continue with GI and DVT prophylaxis. We will continue to follow closely and further recommendations based on clinical course. Discussed with the patient at bedside in detail. Objective - Vital Signs Vital signs: Vital Signs Temp 98.3 F 03/13/21 08:00 Pulse 64 03/13/21 09:44 Resp 18 03/13/21 08:00 BP 165/86 03/13/21 08:00 Pulse Ox 95 03/13/21 08:00 Intake & Output 03/12/21 03/13/21 03/13/21 18:59 06:59 18:59 Other: # Voids 3 1 1 - Labs CBC & Chem 7: 03/11/21 06:00 03/13/21 08:55 Labs: Abnormal Lab Results - Last 24 Hours (Table) 03/13/21 Range/Units 08:55 Chloride 108 H (98-107) mmol/L BUN 4 L (7-17) mg/dL Glucose 165 H (74-99) mg/dL Assessment and Plan Time with Patient: Greater than 30
--- NOTE | 2021-03-13 13:39 | P.PN ---
<Nickie Sheikh - Last Filed: 03/13/21 13:38> Subjective Progress Note Date: 03/13/21 Discharge diagnosis 1. Acute appendicitis status post laparoscopic appendectomy 2. Hypokalemia and hypomagnesemia patient received supplement before discharge Hospital course This is a 61-year-old female who presented with right lower quadrant abdominal pain. She had computed tomography scan evidence of an acute appendicitis. She is status post laparoscopic appendectomy. She tolerated surgery well. Her pain is controlled. She's tolerating diet. She is having flatus and BM's. Denies any difficulty urinating. She's afebrile. She is up and ambulating. She is stable for discharge. Please refer to chart for any further details. Physician Senior Design Engineering Specialist note has been reviewed by physician. Signing provider agrees with the documented findings, assessment, and plan of care. Objective - Vital Signs Vital signs: Vital Signs Temp 98.0 F 03/13/21 12:18 Pulse 60 03/13/21 12:18 Resp 17 03/13/21 12:18 BP 166/85 03/13/21 12:18 Pulse Ox 95 03/13/21 12:18 Intake & Output 03/12/21 03/13/21 03/13/21 18:59 06:59 18:59 Other: # Voids 3 1 1 - Labs CBC & Chem 7: 03/11/21 06:00 03/13/21 08:55 Labs: Abnormal Lab Results - Last 24 Hours (Table) 03/13/21 Range/Units 08:55 Chloride 108 H (98-107) mmol/L BUN 4 L (7-17) mg/dL Glucose 165 H (74-99) mg/dL <Baldomero Cohen - Last Filed: 03/13/21 15:34> Subjective As above. Patient doing well today. Tolerating diet. May discharge. Virtual follow-up as outpatient. Objective - Vital Signs Vital signs: Vital Signs Temp 98.0 F 03/13/21 12:18 Pulse 60 03/13/21 12:18 Resp 17 03/13/21 12:18 BP 166/85 03/13/21 12:18 Pulse Ox 95 03/13/21 12:18 Intake & Output 03/12/21 03/13/21 03/13/21 18:59 06:59 18:59 Intake Total 150 Balance 150 Intake: Oral 150 Other: # Voids 3 1 1 - Labs CBC & Chem 7: 03/11/21 06:00 03/13/21 08:55 Labs: Abnormal Lab Results - Last 24 Hours (Table) 03/13/21 Range/Units 08:55 Chloride 108 H (98-107) mmol/L BUN 4 L (7-17) mg/dL Glucose 165 H (74-99) mg/dL Assessment and Plan (1) Acute appendicitis Status: Acute Code(s): K35.80 - UNSPECIFIED ACUTE APPENDICITIS SNOMED Cod e(s): 08964264
--- NOTE | 2021-03-13 15:34 | P.DS ---
Providers Date of admission: 03/10/21 15:46 Expected date of discharge: 03/13/21 Attending physician: Baldomero Cohen Consults: 03/09/21 17:47 Consult Physician Routine Consulting Provider: Ivan Hale Consult Reason/Comments: Medical management Do you want consulting provider notified?: Yes Primary care physician: Stated None - Discharge Diagnosis(es) (1) Acute appendicitis Discharge diagnosis 1. Acute appendicitis status post laparoscopic appendectomy 2. Hypokalemia and hypomagnesemia patient received supplement before discharge Hospital course This is a 61-year-old female who presented with right lower quadrant abdominal pain. She had computed tomography scan evidence of an acute appendicitis. She is status post laparoscopic appendectomy. She tolerated surgery well. Her pain is controlled. She's tolerating diet. She is having flatus and BM's. Denies any difficulty urinating. She's afebrile. She is up and ambulating. She is stable for discharge. Please refer to chart for any further details. Physician Irrigation Laborer note has been reviewed by physician. Signing provider agrees with the documented findings, assessment, and plan of care. Status: Acute Patient Condition at Discharge: Good Plan - Discharge Summary Discharge Rx Participant: Yes New Discharge Prescriptions: New traMADol HCl [Ultram] 50 mg PO Q8H PRN #6 tab PRN Reason: Mild To Moderate Pain Continue hydroCHLOROthiazide [Hydrodiuril] 25 mg PO DAILY Potassium Chloride ER [K-Dur 10] 10 meq PO DAILY Losartan Potassium 100 mg PO DAILY Metoprolol Tartrate [Lopressor] 50 mg PO BID Discharge Medication List Losartan Potassium 100 mg PO DAILY 03/09/21 [History] Metoprolol Tartrate [Lopressor] 50 mg PO BID 03/09/21 [History] Potassium Chloride ER [K-Dur 10] 10 meq PO DAILY 03/09/21 [History] hydroCHLOROthiazide [Hydrodiuril] 25 mg PO DAILY 03/09/21 [History] traMADol HCl [Ultram] 50 mg PO Q8H PRN #6 tab 03/13/21 [Rx] Follow up Appointment(s)/Referral(s): Baldomero Cohen MD [Medical Doctor] - 03/20/21 (Call Vicki's office for an over the phone check up on 03/20/21.) Roxana Gilbert MD [REFERRING] - 1-2 Days None,Stated [Primary Care Provider] - 1-2 days Activity/Diet/Wound Care/Special Instructions: No driving while taking ultram No lifting over 10 pounds You may shower. No soaking or tub baths for 2 weeks Very light activity until you are reevaluated at your follow up appointment with your surgeon. Diet as tolerated. Call Dr Cohen's office with any questions. Go to an emergency room with any emergent needs. Discharge Disposition: HOME SELF-CARE
[2021-03-14] MEDS ORDERED: PANTOPRAZOLE 40 MG TABLET PO SCH (07:30)
== END 2021-03-13 15:03 | disposition home or self-care (01) | DRG 340 ==
LOC: OR 06:59 → 6PED 08:01 → OBSVTOIN 03-10 15:46 → 6PED 03-12 23:59 → 6NMEDSUR 03-12 23:59
PROVIDERS: ADMIT Surgery; ATTEND Surgery
PROC: 0DTJ4ZZ Resection of Appendix, Percutaneous Endoscopic Approach (ICD-10-PCS; principal; 2021-03-10)
DX: K35.33 Acute appendicitis with perforation, localized peritonitis, and gangrene, with abscess (principal); E83.42 Hypomagnesemia; E87.6 Hypokalemia; I10 Essential (primary) hypertension; N64.4 Mastodynia; Z20.822 Contact with and (suspected) exposure to COVID-19; Z79.899 Other long term (current) drug therapy; Z90.710 Acquired absence of both cervix and uterus
CPT/HCPCS: 80048; 80053; 81003; 83605; 83690; 83735; 85025; 85610; 85730; 88304; 93005; 96365; 96375; 99284